=== PATIENT | female | born 1955 | race Two or more races ===

== ENCOUNTER 2025-07-20 15:18 | Emergency (ER) | payer OTHER ==
[~2025-07-20] VITALS: Ht 152.4 cm; Wt 49.0 kg
[2025-07-20] MEDS ORDERED: PIPERACI/TAZO 3.375GM/D5W 50ML PB IV ONE (15:37)
[2025-07-20] MEDS ORDERED: ONDANSETRON HCL/PF 4 MG/2 ML VIAL ONE (15:37)
[2025-07-20] MEDS: ONDANSETRON HCL/PF - ER 4 MG/2 ML VIAL IV ONE (15:48)
[2025-07-20] MEDS: IV NS 0.9% 1,000 ML BAG IV ONE (15:48)
[2025-07-20] MEDS: PIPERACILLIN /TAZOBACTAM 3.375 G in IV D5W 50 ML IV ONE (15:48)
[2025-07-20] MEDS ORDERED: FUROSEMIDE 20 MG/2 ML VIAL IV ONE (16:00)
[2025-07-20 16:07] LABS: PLATELET COUNT (AUTO) 157 K/uL (150-450); RED BLOOD CELL COUNT(AUTO) 2.38 MIL/uL (4.0-5.2); RED CELL DISTRIBUTION WIDTH 19.0 % (11.5-15.0); WHITE BLOOD COUNT (AUTO) 4.8 K/uL (4.3-11.0)
[2025-07-20 16:20] LABS: CALCIUM, SERUM 7.8 mg/dL (8.5-10.1); CREATININE 0.8 mg/dL (0.6-1.3); SODIUM SERUM 144 mmol/L (136-145); UREA NITROGEN, BLOOD 40 mg/dL (7-18)
[2025-07-20] MEDS ORDERED: IOHEXOL-350 100 ML VIAL IV ONE (16:24)
[2025-07-20] MEDS ORDERED: IV NS 0.9% 250 ML IV ONE (16:24)
[2025-07-20] MEDS ORDERED: CT SWABBABLE VALVE TRANS SET 1 EA INFUS.SET MC ONE (16:24)
[2025-07-20 16:27] LABS: ASPARTATE AMINOTRANSFERASE 13 U/L (15-37); LACTIC ACID 5.9 mmol/L (0.4-2.0); TOTAL PROTEIN, SERUM 5.1 g/dL (6.4-8.2)
[2025-07-20] MEDS ORDERED: ONDA4TAB5 PO (16:29)
[2025-07-20] MEDS ORDERED: LIDO1ADH82 TP (16:29)
[2025-07-20] MEDS ORDERED: PANT40TA49 PO (16:29)
[2025-07-20] MEDS ORDERED: ATOR40TA PO (16:29)
[2025-07-20] MEDS ORDERED: DULO30CA2 PO (16:29)
[2025-07-20] MEDS ORDERED: PROC-11 PO (16:29)
[2025-07-20] MEDS ORDERED: SENN-291 PO (16:29)
[2025-07-20] MEDS ORDERED: PREG50CA PO (16:29)
[2025-07-20] MEDS ORDERED: MELA3CAP2 PO (16:29)
[2025-07-20] MEDS ORDERED: PRED50TA PO (16:29)
[2025-07-20] MEDS ORDERED: LOPE2TAB25 PO (16:29)
[2025-07-20] MEDS ORDERED: POTA-88 PO (16:29)
[2025-07-20] MEDS ORDERED: ACYC400T19 PO (16:29)
[2025-07-20] MEDS ORDERED: MULT-213 PO (16:29)
[2025-07-20 16:33] LABS: INR 1.08 (0.91-1.10)
[2025-07-20] MEDS: PANTOPRAZOLE 40 MG VIAL IV ONE (17:28)
[2025-07-20 17:31] VITALS: BP 112/73; TEMP 97.6; O2SAT 100
[2025-07-20 18:57] LABS: LYMPHOCYTES % (MANUAL) 15 % (16-48); MONOCYTES % (MANUAL) 7 % (0-11.0); NEUTROPHILS % (MANUAL) 78 (42-76); PLATELET ESTIMATE ADEQUATE
== END 2025-07-20 17:31 | disposition left against medical advice (07) ==
LOC: ER 15:33
DX: D64.9 Anemia, unspecified (principal); I10 Essential (primary) hypertension; E11.9 Type 2 diabetes mellitus without complications; R10.20 Pelvic and perineal pain unspecified side; Z79.899 Other long term (current) drug therapy; Z20.822 Contact with and (suspected) exposure to COVID-19
CPT/HCPCS: 99285; 71275; 96374; 96361; 71045; 96375; 87426; 93005; 87804 ×2; 74177; 84145; 85025; 80048; 83605; 80076; 36415; 85730; 87081; 82962; 87040 ×2; 85027; 85007; J2405 ×2; J2543 ×2; J7060; J7030; J7050; Q9967